=== PATIENT | female | born 1950 | race Caucasian/White ===

== ENCOUNTER 2017-04-15 11:03 | Observation (INO) | payer OTHER, MEDICARE ==
[~2017-04-15] VITALS: Ht 162.6 cm; Wt 76.4 kg
[~2017-04-15 11:03] MED LIST: ASPI81TA28 PO; CHOL100010 PO; CLX40 PO; EZET10TA38 PO; METO25TA56 PO; PANT40TA PO; PRLSR20 PO; SYN50 PO
[2017-04-15 12:01] LABS: HEMOGLOBIN 16.5 g/dL (12.0-16.0); MEAN CELL VOLUME 92.9 fL (80-100); MEAN CORPUSCULAR HEMOGLOBIN 30.7 pg (25-34); MEAN PLATELET VOLUME 10.7 fL (7.4-10.4); PLATELET COUNT 278 K/uL (130-400); RED CELL DISTRIBUTION WIDTH CV 14.1 % (11.5-14.5); RED CELL DISTRIBUTION WIDTH SD 47.7 fL (36.4-46.3); WHITE BLOOD COUNT 8.37 K/uL (4.8-10.8)
--- NOTE | 2017-04-15 12:06 | EMERGENCY ROOM VISIT NOTE ---
History First contact with patient: 11:25 Chief Complaint: CARDIAC ASSESSMENT Stated Complaint: CHEST HEAVINESS, WEAKNESS Nursing Triage Summary: Patient c/o bilateral leg weakness, chest heaviness, shortness of breath x 3 weeks. Have not seen her PCP. Patient states "Today it was worse." History of Present Illness 66F with a PMHx of hypothyroidism, angina (neg exercise stress test in the past ) who presents to the Emergency Room with complaints of chest pressure and SOB x 3 weeks. patient was bending forward to pick pulling machine tender her chickens 3 weeks ago when she experienced sudden onset dyspnea and chest pressure. Her symptoms never really went away afterwards. Patient has had an increase in dyspnea recently on activities. ROS: No chest pain, no nausea or vomiting, chronic heartburn, chronic RUQ pain after eatiing, no dysuria, no abdominal pain. one episode of diarrhea last night. No increase in coughing, no increase in the swelling of the hands or feet. She has chronic L ankle pain. SHX: 40pk year smoking history. Review of Systems See HPI for pertinent positives and negatives. A total of ten systems were reviewed and were otherwise negative. Past Medical/Surgical History Medical Problems: (1) Chest pain, rule out acute myocardial infarction (2) History of stress test Family History Patient reports no known family medical history. Social History Smoking Status: Current Every Day Smoker Drug Use: none Marital Status: Occupation Status: retired Current/Historical Medications Scheduled Aspirin (Aspirin Ec), 81 MG PO DAILY Cholecalciferol (Vitamin D), 1,000 INTER.UNIT PO BID Citalopram (Citalopram Hydrobromide), 40 MG PO QAM Ezetimibe/Simvastatin (Vytorin 10MG/20MG), 1 TAB PO QPM Levothyroxine Sodium (Synthroid), 50 MCG PO QAM Metoprolol Tartrate (Lopressor) (Lopressor), 25 MG PO BID Omeprazole (Prilosec), 20 MG PO BID Pantoprazole (Protonix), 40 MG PO BID Physical Exam Vital Signs Date Time Temp Pulse Resp B/P (MAP) Pulse Ox O2 Delivery O2 Flow Rate FiO2 04/15/17 11:50 98 Room Air 04/15/17 11:11 36.5 69 18 150/77 97 Room Air Physical Exam Gen: No acute distress. HEENT: Head - normocephalic and atraumatic. Pupils are equal, round, and reactive to light. Extraocular eye muscles are intact and sclera are anicteric. Ears - bilaterally patent canals with noninjected tympanic membranes and no evidence of hemotympanum. Nose - moist nasal mucosa without discharge. Mouth - moist buccal mucosa. Oropharynx is nonerythematous and there is no tonsillar exudate or edema noted. Neck: Supple; no JVD, nuchal rigidity, cervical lymphadenopathy, or auscultated bruits. Heart: Regular rate and rhythm. There is a normal S1 and S2 with no murmurs, clicks, or gallops appreciated. Lungs: Clear to auscultation bilaterally with no wheezes, rales, or rhonchi. Normal lungs sounds especially in the light of pt's extensive smoking history. Abdomen: Soft, tender to deep palpation in the RUQ, nondistended, with good bowel sounds. There are no palpable pulsatile masses or hepatosplenomegaly. There is no guarding, rigidity, or rebound noted. Extremities: No evidence of cyanosis, clubbing, or edema. There are easily palpable peripheral pulses. No calf tenderness bilaterally. Neuro:The patient is awake and alert, oriented to day, time, and place. Muscle strength is 5/5 in all 4 extremities. The patient has equal tax accountant strength and equal pedal push and pull. There are no cerebellar signs. Medical Decision & Procedures ER Provider Diagnostic Interpretation: SINGLE VIEW CHEST CLINICAL HISTORY: Cough. Chest pressure. FINDINGS: An AP, portable, upright chest radiograph is compared to study dated 09/05/2015. The examination is degraded by portable technique and patient rotation. The cardiomediastinal silhouette is unremarkable. There is atherosclerotic calcification of the thoracic aorta. Chronic interstitial thickening is unchanged. Bibasilar atelectasis is noted. No airspace consolidation is seen typical for pneumonia and there is no large pleural effusion. No pneumothorax is seen. The skeletal structures are osteopenic. The bony thorax is grossly intact. IMPRESSION: No acute cardiopulmonary abnormality. Laboratory Results 04/15/17 11:35 04/15/17 11:35 Test 04/15/17 11:35 04/15/17 11:42 04/15/17 11:49 Red Blood Count 5.38 M/uL (4.2-5.4) Mean Corpuscular Volume 92.9 fL (80-100) Mean Corpuscular Hemoglobin 30.7 pg (25-34) Mean Corpuscular Hemoglobin Concent 33.0 g/dl (32-36) RDW Standard Deviation 47.7 fL (36.4-46.3) RDW Coefficient of Variation 14.1 % (11.5-14.5) Mean Platelet Volume 10.7 fL (7.4-10.4) D-Dimer 480 ug/L FEU (0-500) Anion Gap 2.0 mmol/L (3-11) Est Creatinine Clear Calc Drug Dose 67.3 ml/min Estimated GFR () 87.8 Estimated GFR (Non- 75.8 BUN/Creatinine Ratio 10.3 (10-20) Calcium Level 10.3 mg/dl (8.5-10.1) Total Bilirubin 0.5 mg/dl (0.2-1) Aspartate Amino Transf (AST/SGOT) 19 U/L (15-37) Alanine Aminotransferase (ALT/SGPT) 28 U/L (12-78) Alkaline Phosphatase 96 U/L (45-117) Creatine Kinase MB 1.1 ng/ml (0.5-3.6) Pro-B-Type Natriuretic Peptide 123 pg/ml (0-900) Total Protein 7.4 gm/dl (6.4-8.2) Albumin 4.0 gm/dl (3.4-5.0) Globulin 3.4 gm/dl (2.5-4.0) Albumin/Globulin Ratio 1.2 (0.9-2) Lipase 171 U/L (73-393) Thyroid Stimulating Hormone (TSH) 3.490 uIu/ml (0.300-4.500) Bedside Troponin I < 0.030 ng/ml (0-0.045) Creatine Kinase MB Ratio (0-3.0) Medical Decision The patient's care and disposition was discussed with Dr. Corado, Attending ED Physician. This is a 66M with Chest Pressure x 3 weeks. Differential diagnosis include cardiac ischemia, aortic dissection, pulmonary embolism, pneumonia, pneumothorax , musculoskeletal, infections, gastrointestinal, as well as others were entertained. Triage Nursing notes were reviewed. ED Course included an extensive history and physical exam, labs and imaging. EKG - NSR (rate of 61), no ST changes, normal axis, no ectopy. CBC - WNL, aside from elevated Hematocrit CMP - normal Trops - neg XRAY - neg D-Dimer - normal Lipase - normal TSH - normal 11:30 - Patient was examined. 11:45 - Pt was discussed with Dr. Corado and orders were placed. 12:45 - Findings were reviewed with Dr. Corado and the family. Because of the patient's smoking history, age and other risk factors she can be considered high risk for a cardiac event. 12:54 - Hospitalist was paged. 12:55 - Talked to Dr. Lemons for an admission for chest pain rule out. The pt was informed about the findings as listed above. All questions were answered. Impression Primary Impression: Chest pain, rule out acute myocardial infarction Departure Information Dispostion Admitted as an inpatient Condition GOOD Referrals Benito Cheema M.D. (PCP) Patient Instructions [facility] Resident Involvement: Resident Care Provided Care Provided: Adult ED
[2017-04-15 12:12] LABS: ALT/SGPT 28 U/L (12-78); AST/SGOT 19 U/L (15-37); BLOOD UREA NITROGEN 8 mg/dl (7-18); CALCIUM 10.3 mg/dl (8.5-10.1); CARBON DIOXIDE 31 mmol/L (21-32); GLUCOSE 97 mg/dl (70-99); LIPASE 171 U/L (73-393); POTASSIUM 4.3 mmol/L (3.5-5.1); SODIUM 138 mmol/L (136-145)
--- NOTE | 2017-04-15 12:13 | DIAGNOSTIC IMAGING REPORT ---
SINGLE VIEW CHEST CLINICAL HISTORY: Cough. Chest pressure. FINDINGS: An AP, portable, upright chest radiograph is compared to study dated 09/05/2015. The examination is degraded by portable technique and patient rotation. The cardiomediastinal silhouette is unremarkable. There is atherosclerotic calcification of the thoracic aorta. Chronic interstitial thickening is unchanged. Bibasilar atelectasis is noted. No airspace consolidation is seen typical for pneumonia and there is no large pleural effusion. No pneumothorax is seen. The skeletal structures are osteopenic. The bony thorax is grossly intact. IMPRESSION: No acute cardiopulmonary abnormality. Electronically signed by: Vasile Ash M.D. 04/15/2017 12:11 PM Dictated Date/Time: 04/15/2017 12:11 PM
[2017-04-15 12:23] LABS: ALKALINE PHOSPHATASE 96 U/L (45-117); CKMB 1.1 ng/ml (0.5-3.6); TOTAL PROTEIN 7.4 gm/dl (6.4-8.2)
[2017-04-15] MEDS ORDERED: MONT1TAB5 PO (13:11)
--- NOTE | 2017-04-15 13:52 | DIAGNOSTIC IMAGING REPORT ---
ULTRASOUND RIGHT UPPER QUADRANT ABDOMEN CLINICAL HISTORY: Chronic right upper quadrant abdominal pain. COMPARISON STUDY: No priors. TECHNIQUE: Real-time, grayscale, and color flow sonography of the right upper quadrant of the abdomen was performed. Images are reviewed in the transverse and longitudinal planes. FINDINGS: Liver: The liver is normal in size and echotexture. There is no intrahepatic biliary ductal dilatation. The main portal vein is patent. Gallbladder: Focal adenomyomatosis is suggested in the gallbladder fundus. A tiny polyp is questioned. The gallbladder is otherwise normal in appearance. No gallstones are identified. There is no gallbladder wall thickening or pericholecystic fluid. A sonographic Wheeler's sign is reportedly absent. The common bile duct measures up to 0.4 cm in diameter. Pancreas: Visualized portions of the pancreatic head and body are normal in appearance. Right kidney: Survey images of the right kidney demonstrate normal size and echotexture. There is no hydronephrosis. Ascites: None. IMPRESSION: No acute sonographic abnormality is identified in the right upper quadrant. No gallstones are seen. Electronically signed by: Vasile Ash M.D. 04/15/2017 1:50 PM Dictated Date/Time: 04/15/2017 1:49 PM
[2017-04-15] MEDS ORDERED: POLYETHYLENE (MIRALAX) 17 GM PACK PO PRN (14:30)
[2017-04-15] MEDS ORDERED: ONDANSETRON INJ 2 MG/ML 2 ML VIAL IV PRN (14:30)
[2017-04-15] MEDS ORDERED: MAGNESIUM HYDROXIDE SUSP 30 ML UDC PO PRN (14:30)
[2017-04-15] MEDS ORDERED: ACETAMINOPHEN 325 MG TAB PO PRN (14:30)
[2017-04-15] MEDS ORDERED: ALUMINUM/MAGNESIUM/SIMETH (MAALOX MAX) 30 ML UDC PO PRN (14:30)
[2017-04-15] MEDS ORDERED: EZET1TAB33 PO (14:35)
--- NOTE | 2017-04-15 14:55 | History and Physical ---
History & Physical Date & Time of Service: Apr 15, 2017 at 14:38 Chief Complaint: Chest Heaviness, Weakness Primary Care Physician: Benito Cheema M.D. History of Present Illness Source: patient, family (at bedside), clinic records, hospital records This is a 66 y/o female with a history of HTN,HLD, angina, hypothyroidism, depression/anxiety, asthma and GERD who presented to the ED on 04/15 with chest pain and shortness of breath. The patient states that her symptoms first started about 3 weeks ago, but this morning her chest pain was acutely worse. She states that she developed an 8/10 central chest pressure along with shortness of breath. She states the pain radiated up to her throat. After sitting down and taking her normal morning medications, the pain began to slowly improve on its own. She currently denies any chest pain, and her shortness of breath has resolved too. She reports a chronic cough which is sometimes productive and states she sometimes has wheezing. The patient states she has intermittent nausea after she takes her Protonix, which is ongoing, but denies any vomiting. The patient denies fevers, chills, sweats, palpitations, claudication, vomiting, abdominal pain, dysuria, hematuria, urinary retention, paralysis, weakness, numbness and tingling. Past Medical/Surgical History Medical Problems: (1) History of stress test Status: Resolved HTN HLD Angina Hypothyroidism Depression/anxiety Asthma GERD Family History Diabetes mellitus Hypertension Kidney cancer SON Kidney disease SON Lung cancer MOTHER Myocardial infarction at age less than 60 FATHER, Onset:42 (3 MIs, of SC at 42) [place] SON Social History Smoking Status: Current Every Day Smoker (1/2 ppd currently, smoking 40 years) Smokeless Tobacco Use: No Alcohol Use: occasionally Drug Use: none Marital Status: Housing status: lives with significant other Occupational Status: retired Allergies Coded Allergies: Latex (Unverified Allergy, Intermediate, RASH, 04/15/17) Home Medications Scheduled Aspirin (Aspirin Ec), 81 MG PO DAILY Citalopram (Citalopram Hydrobromide), 40 MG PO QAM Ezetimibe-Simvastatin (Ezetimibe/Simvastatin 10-40 mg), 1 TAB PO DAILY Levothyroxine Sodium (Synthroid), 50 MCG PO QAM Metoprolol Tartrate (Lopressor) (Lopressor), 25 MG PO BID Montelukast Sodium (Montelukast Sodium), 10 MG PO HS Pantoprazole (Protonix), 40 MG PO BID Review of Systems Constitutional: No fever, No chills, No sweats Eyes: No worsening of vision, No eye pain, No diplopia ENT: No hearing loss, No nasal symptoms, No trouble swallowing Respiratory: +Chronic cough. Intermittent wheezing. SOB resolved. LIU. Cardiovascular: +Chest pressure resolved. No claudication, No palpitations Abdomen: +Intermittent nausea with Protonix. No pain, No vomiting Musculoskeletal: No joint pain, No muscle pain, No swelling Genitourinary - Female: No dysuria, No urinary retention, No hematuria Neurologic: No paralysis, No weakness, No numbness/tingling Integumentary: No rash, No itch, No color change Physical Exam Vital Signs Date Time Temp Pulse Resp B/P (MAP) Pulse Ox O2 Delivery O2 Flow Rate FiO2 04/15/17 14:09 64 16 169/72 98 Room Air 04/15/17 13:01 55 20 145/76 96 Room Air 04/15/17 12:31 56 16 145/69 98 Room Air 04/15/17 12:01 55 16 147/72 96 Room Air 04/15/17 11:50 98 Room Air 04/15/17 11:49 56 16 166/79 97 Room Air 04/15/17 11:11 36.5 69 18 150/77 97 Room Air General appearance: Well-developed, well-nourished, no apparent distress Head: Normocephalic, atraumatic Eyes: Normal inspection, PERRL, EOMI ENT: Normal ENT inspection, hearing grossly normal, pharynx normal Neck: Supple, no JVD, trachea midline Respiratory/Chest: Lungs clear to auscultation, normal breath sounds, no respiratory distress Cardiovascular: Regular rate & rhythm, no gallop, no murmur Abdomen/GI: +RUQ TTP. Normal bowel sounds, soft Extremities/Musculoskeletal: Normal inspection, no calf tenderness, no pedal edema Neurological/Psych: Alert, normal mood/affect, oriented x 3 Skin: Normal color, warm/dry, no rash Diagnostics Laboratory Results Results Past 24 Hours Test 04/15/17 11:35 04/15/17 11:42 04/15/17 11:49 Range/Units White Blood Count 8.37 4.8-10.8 K/uL Red Blood Count 5.38 4.2-5.4 M/uL Hemoglobin 16.5 12.0-16.0 g/dL Hematocrit 50.0 37-47 % Mean Corpuscular Volume 92.9 80-100 fL Mean Corpuscular Hemoglobin 30.7 25-34 pg Mean Corpuscular Hemoglobin Concent 33.0 32-36 g/dl RDW Standard Deviation 47.7 36.4-46.3 fL RDW Coefficient of Variation 14.1 11.5-14.5 % Platelet Count 278 130-400 K/uL Mean Platelet Volume 10.7 7.4-10.4 fL D-Dimer 480 0-500 ug/L FEU Sodium Level 138 136-145 mmol/L Potassium Level 4.3 3.5-5.1 mmol/L Chloride Level 105 98-107 mmol/L Carbon Dioxide Level 31 21-32 mmol/L Anion Gap 2.0 3-11 mmol/L Blood Urea Nitrogen 8 7-18 mg/dl Creatinine 0.80 0.60-1.20 mg/dl Est Creatinine Clear Calc Drug Dose 67.3 ml/min Estimated GFR () 87.8 Estimated GFR (Non- 75.8 BUN/Creatinine Ratio 10.3 10-20 Random Glucose 97 70-99 mg/dl Calcium Level 10.3 8.5-10.1 mg/dl Total Bilirubin 0.5 0.2-1 mg/dl Aspartate Amino Transf (AST/SGOT) 19 15-37 U/L Alanine Aminotransferase (ALT/SGPT) 28 12-78 U/L Alkaline Phosphatase 96 45-117 U/L Creatine Kinase MB 1.1 0.5-3.6 ng/ml Pro-B-Type Natriuretic Peptide 123 0-900 pg/ml Total Protein 7.4 6.4-8.2 gm/dl Albumin 4.0 3.4-5.0 gm/dl Globulin 3.4 2.5-4.0 gm/dl Albumin/Globulin Ratio 1.2 0.9-2 Lipase 171 73-393 U/L Thyroid Stimulating Hormone (TSH) 3.490 0.300-4.500 uIu/ml Bedside Troponin I < 0.030 0-0.045 ng/ml Creatine Kinase MB Ratio 0-3.0 Diagnostic Radiology Reviewed the following studies and agree with interpretation as follows: SINGLE VIEW CHEST CLINICAL HISTORY: Cough. Chest pressure. FINDINGS: An AP, portable, upright chest radiograph is compared to study dated 09/05/2015. The examination is degraded by portable technique and patient rotation. The cardiomediastinal silhouette is unremarkable. There is atherosclerotic calcification of the thoracic aorta. Chronic interstitial thickening is unchanged. Bibasilar atelectasis is noted. No airspace consolidation is seen typical for pneumonia and there is no large pleural effusion. No pneumothorax is seen. The skeletal structures are osteopenic. The bony thorax is grossly intact. IMPRESSION: No acute cardiopulmonary abnormality. ULTRASOUND RIGHT UPPER QUADRANT ABDOMEN CLINICAL HISTORY: Chronic right upper quadrant abdominal pain. COMPARISON STUDY: No priors. TECHNIQUE: Real-time, grayscale, and color flow sonography of the right upper quadrant of the abdomen was performed. Images are reviewed in the transverse and longitudinal planes. FINDINGS: Liver: The liver is normal in size and echotexture. There is no intrahepatic biliary ductal dilatation. The main portal vein is patent. Gallbladder: Focal adenomyomatosis is suggested in the gallbladder fundus. A tiny polyp is questioned. The gallbladder is otherwise normal in appearance. No gallstones are identified. There is no gallbladder wall thickening or pericholecystic fluid. A sonographic Wheeler's sign is reportedly absent. The common bile duct measures up to 0.4 cm in diameter. Pancreas: Visualized portions of the pancreatic head and body are normal in appearance. Right kidney: Survey images of the right kidney demonstrate normal size and echotexture. There is no hydronephrosis. Ascites: None. IMPRESSION: No acute sonographic abnormality is identified in the right upper quadrant. No gallstones are seen. EKG Reviewed EKG and agree with interpretation as follows: 61 bpm, NSR Impression Assessment and Plan 66 y/o female with a history of HTN, HLD, angina, hypothyroidism, depression/ anxiety, asthma and GERD who presented to the ED on 04/15 with chest pain and shortness of breath. Pt arrived to ED afebrile, VSS. Chest pain now resolved. CXR no acute disease. RUQ abdominal ultrasound no acute disease. EKG no ischemic changes. Troponin negative. Chest pain, ACS r/o--pt w/pain for 3 weeks but acutely worse this morning. High risk given HTN, HLD, current smoker and family history -Admit to telemetry for observation -Trend cardiac enzymes q8h x 3. First set negative -Stress echo in am if negative. Pt unable to do exercise stress test due to bad knee and ankle. Dobutamine stress ordered -EKG q am and prn chest pain -Fasting lipid profile in am -Continue ASA, beta yvan, statin RUQ pain--only occurs with palpation, no pain at rest -RUQ ultrasound no acute disease HTN, HLD--stable -Continue Lopressor 25 mg PO BID, Vytorin 10/40 mg PO hs Hypothyroidism--stable -TSH WNL -Continue Synthroid 50 mcg PO qd Depression/anxiety--stable -Continue Celexa 40 mg PO qd Asthma -Continue Singulair 10 mg PO qd GERD -Continue Protonix 40 mg PO BID DVT prophylaxis -Enoxaparin 40 mg SC q24h -FÁTIMA Miller Code Status -Level I, FULL RESUSCITATION STATUS Supervising Note Dr. Eason I performed a history and physical examination on the patient. I reviewed above note and agree with it. I discussed plan with APC and patient. During my face to face encounter with the patient, I answered all of the patient's questions. Level of Care Telemetry Resuscitation Status FULL RESUSCITATION VTE Prophylaxis VTE Risk Assessment Done? Y/N: Yes Risk Level: Moderate Given or contraindicated: Enoxaparin (Lovenox)SQ, T.E.D. Stockings, SCD's
[2017-04-15] MEDS ORDERED: IV FLUIDS COMPLETED PRN (15:00)
[2017-04-15 15:31] VITALS: BP 181/76; PULSE 61; TEMP 36.4; O2SAT 96
[2017-04-15 15:34] VITALS: BP 181/76; PULSE 61; TEMP 36.4; O2SAT 96; Ht 162.6 cm; Wt 76.4 kg
[2017-04-15 16:25] LABS: INR 0.9 (0.9-1.1); PTT PATIENT 24.9 SECONDS (21.0-31.0)
[2017-04-15] MEDS: ENOXAPARIN 40 MG/0.4 ML SYR SC SCH (17:47)
[2017-04-15 19:25] VITALS: BP 132/69; PULSE 71; TEMP 36.8; O2SAT 94
[2017-04-15] MEDS: PANTOprazole SOD 40 MG TAB PO SCH (19:41)
[2017-04-15] MEDS: MONTELUKAST SOD 10 MG TAB PO SCH (19:41)
[2017-04-15] MEDS: METOPROLOL TARTRATE 25 MG TAB PO SCH (19:41)
[2017-04-15 20:08] LABS: CKMB 0.9 ng/ml (0.5-3.6)
[2017-04-15 23:10] VITALS: BP 132/76; PULSE 67; TEMP 37; O2SAT 93
[2017-04-16 03:28] VITALS: BP 147/87; PULSE 67; TEMP 36.8; O2SAT 95
[2017-04-16 04:21] LABS: CHOLESTEROL 142 mg/dl (0-200); CKMB 1.2 ng/ml (0.5-3.6); LDL CHOLESTEROL CALCULATED 72 mg/dl
[2017-04-16] MEDS: LEVOTHYROXINE 50 MCG TAB PO SCH (05:57)
[2017-04-16 07:51] VITALS: BP 142/53; PULSE 67; TEMP 36.2; O2SAT 94
[2017-04-16] MEDS: METOPROLOL TARTRATE 25 MG TAB PO SCH ×2 (09:51→21:05)
[2017-04-16] MEDS: CITALOPRAM 40 MG TAB PO SCH (09:52)
[2017-04-16] MEDS: EZETIMIBE/SIMVASTATIN 10/40 TAB PO SCH (09:52)
[2017-04-16] MEDS: PANTOprazole SOD 40 MG TAB PO SCH ×2 (09:52→21:05)
[2017-04-16] MEDS: ASPIRIN 81 MG ECTAB PO SCH (09:52)
[2017-04-16 12:09] VITALS: BP 117/77; PULSE 62; TEMP 36.7; O2SAT 94
[2017-04-16 15:10] VITALS: BP 142/85; PULSE 63; TEMP 36.7; O2SAT 95
[2017-04-16] MEDS: ENOXAPARIN 40 MG/0.4 ML SYR SC SCH (17:52)
--- NOTE | 2017-04-16 18:10 | Progress Note ---
Subjective Date of Service: Apr 16, 2017. Subjective Pt evaluation today including: conversation w/ patient, conversation w/ family ( at bedside), physical exam, chart review, lab review, review of studies (EKG, RUQ u/s, cxr), review of inpatient medication list Pain: none since admission PO Intake: normal, no abd pain Voiding: no voiding problems tele normal since admission patient reports having had what she remembers was a normal heart cath about 10 years ago in [place] previously saw Dr. Cheema from cardiology in [place] last stress test was 3+ years ago - was negative to her recollection when asked if she has been dx with "angina" she states yes but has never been prescribed anything for such she continues to smoke cigarettes daily, 1/2 ppd declines nicoderm patch father had MIs in his 40s Problem List Medical Problems: (1) Hypertension Status: Acute (2) Substernal chest pain Status: Acute Review of Systems Respiratory: + dyspnea on exertion (chronic, recurrent episodes of such associated with chest heaviness), No cough, No sputum, No wheezing Cardiac: No chest pain (none since admission), No orthopnea, No PND, No edema, No claudication, No palpitations Abdomen: No pain, No nausea, No vomiting Objective Vital Signs Date Time Temp Pulse Resp B/P (MAP) Pulse Ox O2 Delivery O2 Flow Rate FiO2 04/16/17 15:10 36.7 63 20 142/85 (104) 95 Room Air 04/16/17 12:09 36.7 62 16 117/77 (90) 94 Room Air 04/16/17 07:51 36.2 67 16 142/53 (82) 94 Room Air Nasal Cannula 04/16/17 04:00 Room Air 04/16/17 03:28 36.8 67 18 147/87 (107) 95 Room Air 04/16/17 00:00 Room Air 04/15/17 23:10 37.0 67 17 132/76 (94) 93 Room Air 04/15/17 20:00 Room Air 04/15/17 19:25 36.8 71 17 132/69 (90) 94 Room Air Physical Exam General Appearance: no apparent distress Eyes: + pertinent finding (lipid deposits near both eyes ) ENT: pharynx normal Neck: no JVD Respiratory/Chest: chest non-tender, lungs clear, no respiratory distress, no accessory muscle use Cardiovascular: regular rate, rhythm, no gallop, no murmur Abdomen: normal bowel sounds, non tender, soft, no organomegaly Extremities: no pedal edema, + pertinent finding (pulses both feet 2+ ) Neurologic/Psychiatric: alert, oriented x 3 Laboratory Results Last 24 Hours Test 04/15/17 19:36 04/16/17 03:48 Total Creatine Kinase 46 U/L 45 U/L Creatine Kinase MB 0.9 ng/ml 1.2 ng/ml Creatine Kinase MB Ratio 2.0 2.7 Troponin I < 0.015 ng/ml < 0.015 ng/ml Triglycerides Level 152 mg/dl Cholesterol Level 142 mg/dl HDL Cholesterol 40 mg/dl LDL Cholesterol, Calculated 72 mg/dl VLDL Cholesterol, Calculated 30 mg/dl Cholesterol/HDL Ratio 3.6 Assessment and Plan 66yo female - 1. chest pain, recurrent x 1 month - thus far has ruled out for MA with 3 neg troponins. EKGs without ischemic changes. [id number] I am concerned about her symptomatology and multiple CAD risk factors. Dobutamine stress echo ordered for the AM. CV risk factors include HTN, hyperlipidemia, tobacco use, family history, post- menopausal female. Lipids are acceptable. Cont asa, BB, statin. 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 NPO after MN tonight for stress in AM. 2. hyperlipidemia - LDL acceptable, cont same statin dose. 3. RUQ pain - none today; RUQ u/s negative. 4. HTN - controlled. 5. tobacco dependence - long-standing - high school counselor to quit. Should receive AAA screening. 6. hypothyroidism - TSH compensated; cont synthroid 50mcg daily. 7. Depression/anxiety--stable -Continue Celexa 40 mg PO qd 8. COPD / asthma - stable; singulair. 9. GERD - cont PPI twice a day. I don't think her presenting symptoms are GI in origin. 10. DVT prophylaxis -Enoxaparin 40 mg SC q24h updated Continued [facility] stay due to: other (need for stress echo) Discharge planning: home
[2017-04-16 19:20] VITALS: BP 154/82; PULSE 68; TEMP 36.8; O2SAT 95
[2017-04-16] MEDS: MONTELUKAST SOD 10 MG TAB PO SCH (21:05)
[2017-04-16 23:18] VITALS: BP 157/93; PULSE 72; TEMP 36.7; O2SAT 95
[2017-04-17 03:14] VITALS: BP 148/84; PULSE 61; TEMP 36.7; O2SAT 95
[2017-04-17] MEDS: LEVOTHYROXINE 50 MCG TAB PO SCH (06:22)
[2017-04-17] MEDS ORDERED: DOBUTamine HCL 12.5 MG/ML 20 ML VIAL ONE (08:08)
[2017-04-17] MEDS ORDERED: METOPROLOL TARTRATE 1 MG/ML VIAL ONE (08:08)
[2017-04-17] MEDS ORDERED: ATROPINE SULFATE 0.1 MG/ML 5ML SYR ONE (08:09)
[2017-04-17 08:33] VITALS: BP 127/61; PULSE 63; TEMP 36.8; O2SAT 93
[2017-04-17] MEDS: CITALOPRAM 40 MG TAB PO SCH (10:02)
[2017-04-17] MEDS: METOPROLOL TARTRATE 25 MG TAB PO SCH (10:02)
[2017-04-17] MEDS: ASPIRIN 81 MG ECTAB PO SCH (10:02)
[2017-04-17] MEDS: EZETIMIBE/SIMVASTATIN 10/40 TAB PO SCH (10:02)
[2017-04-17] MEDS: PANTOprazole SOD 40 MG TAB PO SCH (10:02)
[2017-04-17 12:00] VITALS: O2SAT 93
[2017-04-17 12:42] VITALS: BP 129/75; PULSE 62; TEMP 36.8; O2SAT 94
--- NOTE | 2017-04-17 13:31 | Discharge Instructions ---
Discharge Instructions Date of Service Apr 17, 2017. Admission Reason for Admission: Chest Pain,R/O Acute Myocardial Infarction Discharge Discharge Diagnosis / Problem: Chest pain Discharge Goals Goal(s): Decrease discomfort, Diagnostic testing, Therapeutic intervention Activity Recommendations Activity Limitations: resume your previous activity (as tolerated) . Instructions / Follow-Up Instructions / Follow-Up You were admitted to the hospital after presenting with chest pain and shortness of breath. Your cardiac workup to rule out an acute cardiac event included EKGs, serial cardiac enzymes, and a stress test. These have all come back normal. Although your stress test was interpreted as normal, it is possible that there is still underlying coronary artery disease. It is recommended that you follow up with your mri assistant for further evaluation of your chest pain and shortness of breath as an outpatient. As acute cardiac events have been ruled out and you are feeling well, you are now medically stable for discharge. Medications: *No changes have been made to your medications. Please continue as prescribed. Follow up: *You have been scheduled to follow up with Rigoberto Gacria PA-C, at your primary care provider's office on Monday, 04/21 at 2:00 pm. *You have also been scheduled to follow up with your mri assistant, Dr. Cheema , on 04/26 at 1:50 pm. *It is recommended that you have a screening ultrasound done to assess for an abdominal aortic aneurysm due to your smoking history and increased risk. Please bring this up at your primary care provider follow up appointment. *It is also recommended that you have pulmonary function tests (PFTs) performed with Dr. Diego of pulmonology to assess for underlying pulmonary disease, again given your smoking history. Your symptoms may be due to pulmonary disease and/ or cardiac disease. Please seek medical attention if you experience fevers, chills, sweats, dizziness/lightheadedness, loss of consciousness, chest pain, shortness of breath, nausea, vomiting, numbness or tingling. Current Hospital Diet Patient's current hospital diet: AHA Diet (Heart Healthy) Discharge Diet Recommended Diet: AHA Diet (Heart Healthy) Procedures Procedures Performed: Dobutamine stress echocardiogram Pending Studies Studies pending at discharge: no Laboratory Results Lipid Panel Test 04/16/17 03:48 Range/Units Triglycerides Level 152 H 0-150 mg/dl Cholesterol Level 142 0-200 mg/dl HDL Cholesterol 40 mg/dl Cholesterol/HDL Ratio 3.6 LDL Cholesterol, Calculated 72 mg/dl Medical Emergencies . Who to Call and When: Medical Emergencies: If at any time you feel your situation is an emergency, please call 911 immediately. . Non-Emergent Contact Non-Emergency issues call your: Primary Care Provider, Animal Science Instructor, Receivables Specialist Call Non-Emergent contact if: you have a fever, your pain is not controlled, your pain is worsening, your pain is unusual for you, your pain is concerning you, you have any medication questions . Past History Medical & Surgical History: (1) Chest pain, rule out acute myocardial infarction . "Provider Documentation" section prepared by Charo Becerra. . VTE Core Measure Inpt VTE Proph given/why not?: Enoxaparin (Lovenox)OSVALDO, T.E.Kay. Molly, SCD's
[2017-04-17 13:42] VITALS: BP 129/75; PULSE 62; TEMP 36.8; O2SAT 94
--- NOTE | 2017-04-17 14:02 | Discharge Summary ---
Discharge Summary Date of Service Apr 17, 2017. Discharge Summary Admission Date: Apr 15, 2017 at 15:37 Discharge Date: Apr 17, 2017 Discharge Disposition: Home Principal Diagnosis: Chest pain Problems/Secondary Diagnoses: HTN, HLD, angina, hypothyroidism, depression/anxiety, asthma, GERD Procedures: SINGLE VIEW CHEST CLINICAL HISTORY: Cough. Chest pressure. FINDINGS: An AP, portable, upright chest radiograph is compared to study dated 09/05/2015. The examination is degraded by portable technique and patient rotation. The cardiomediastinal silhouette is unremarkable. There is atherosclerotic calcification of the thoracic aorta. Chronic interstitial thickening is unchanged. Bibasilar atelectasis is noted. No airspace consolidation is seen typical for pneumonia and there is no large pleural effusion. No pneumothorax is seen. The skeletal structures are osteopenic. The bony thorax is grossly intact. IMPRESSION: No acute cardiopulmonary abnormality. ULTRASOUND RIGHT UPPER QUADRANT ABDOMEN CLINICAL HISTORY: Chronic right upper quadrant abdominal pain. COMPARISON STUDY: No priors. TECHNIQUE: Real-time, grayscale, and color flow sonography of the right upper quadrant of the abdomen was performed. Images are reviewed in the transverse and longitudinal planes. FINDINGS: Liver: The liver is normal in size and echotexture. There is no intrahepatic biliary ductal dilatation. The main portal vein is patent. Gallbladder: Focal adenomyomatosis is suggested in the gallbladder fundus. A tiny polyp is questioned. The gallbladder is otherwise normal in appearance. No gallstones are identified. There is no gallbladder wall thickening or pericholecystic fluid. A sonographic Wheeler's sign is reportedly absent. The common bile duct measures up to 0.4 cm in diameter. Pancreas: Visualized portions of the pancreatic head and body are normal in appearance. Right kidney: Survey images of the right kidney demonstrate normal size and echotexture. There is no hydronephrosis. Ascites: None. IMPRESSION: No acute sonographic abnormality is identified in the right upper quadrant. No gallstones are seen. Medication Reconciliation Continued Medications: Aspirin (Aspirin Ec) 81 Mg Tab 81 MG PO DAILY Citalopram (Citalopram Hydrobromide) 40 Mg Tab 40 MG PO QAM Ezetimibe-Simvastatin (Ezetimibe/Simvastatin 10-40 mg) 1 Tab Tab 1 TAB PO DAILY Levothyroxine Sodium (Synthroid) 50 Mcg Tab 50 MCG PO QAM Metoprolol Tartrate (Lopressor) (Lopressor) 25 Mg Tab 25 MG PO BID, TAB Montelukast Sodium (Montelukast Sodium) 10 Mg Tab 10 MG PO HS for 90 Days, TAB 3 Refills Pantoprazole (Protonix) 40 Mg Tab 40 MG PO BID, #30 TAB Referrals At Discharge Follow up Referrals: [employer] Safety Engineer Referral - Within 1-2 Weeks with Trey Diego Discharge Exam The patient reports feeling well. She denies any chest pain since admission. She denies any shortness of breath or other complaints. She states she feels very relieved about her stress test. The patient denies fevers, chills, sweats , chest pain, palpitations, claudication, cough, wheezing, shortness of breath, nausea, vomiting, abdominal pain, dysuria, hematuria, urinary retention, paralysis, weakness, numbness and tingling. Constitutional: No fever, No chills, No sweats Eyes: No worsening of vision, No eye pain, No diplopia ENT: No hearing loss, No nasal symptoms, No trouble swallowing Respiratory: No cough, No wheezing, No shortness of breath Cardiovascular: No chest pain, No claudication, No palpitations Abdomen: No pain, No nausea, No vomiting Musculoskeletal: No joint pain, No muscle pain, No swelling Genitourinary - Female: No dysuria, No urinary retention, No hematuria Neurologic: No paralysis, No weakness, No numbness/tingling Integumentary: No rash, No itch, No color change General appearance: Well-developed, well-nourished, no apparent distress Head: Normocephalic, atraumatic Eyes: Normal inspection, PERRL, EOMI ENT: Normal ENT inspection, hearing grossly normal, pharynx normal Neck: Supple, no JVD, trachea midline Respiratory/Chest: Lungs clear to auscultation, normal breath sounds, no respiratory distress Cardiovascular: Regular rate & rhythm, no gallop, no murmur Abdomen/GI: Normal bowel sounds, non-tender, soft Extremities/Musculoskeletal: Normal inspection, no calf tenderness, no pedal edema Neurological/Psych: Alert, normal mood/affect, oriented x 3 Skin: Normal color, warm/dry, no rash Hospital Course 66 y/o female with a history of HTN, HLD, angina, hypothyroidism, depression/ anxiety, asthma and GERD who presented to the ED on 04/15 with chest pain and shortness of breath. Pt arrived to ED afebrile, VSS. Chest pain now resolved. CXR no acute disease. RUQ abdominal ultrasound no acute disease. EKG no ischemic changes. Troponin negative. Pt w/pain for 3 weeks but acutely worse this morning. High risk given HTN, HLD, current smoker and family history Chest pain, ACS r/o--chest pain resolved -Admit to telemetry for observation. No acute events overnight. PT in sinus rhythm HR 60s-80s -Cardiac enzymes negative x 3 -Spoke to cardiology, dobutamine stress negative for ischemia, did reach target HR. No wall motion abnormalities -EKG no ischemic changes -Triglycerides elevated at 152, total cholesterol 142, non-HDL 102 -Continue ASA, beta yvan, statin -F/u with cardiology for further testing. Possible false negative stress test, if symptoms persist could consider diagnostic cardiac cath RUQ pain--resolved -RUQ ultrasound no acute disease HTN, HLD--stable -Continue Lopressor 25 mg PO BID, Vytorin 10/40 mg PO hs AAA screening--given risk factors, recommend screening ultrasound to assess for presence of AAA Hypothyroidism--stable -TSH WNL -Continue Synthroid 50 mcg PO qd Depression/anxiety--stable -Continue Celexa 40 mg PO qd Asthma -Continue Singulair 10 mg PO qd -Recommend outpt PFTs to assess for any other underlying pulmonary disease contributing to symptoms GERD -Continue Protonix 40 mg PO BID DVT prophylaxis -Enoxaparin 40 mg SC q24h -FÁTIMA Miller Code Status -Level I, FULL RESUSCITATION STATUS Total Time Spent: Greater than 30 minutes This includes examination of the patient, discharge planning, medication reconciliation, and communication with other providers. Discharge Instructions Please refer to the electronic Patient Visit Report (Discharge Instructions) for additional information. Additional Copies To Benito Cheema M.D.; Helen Carlson
--- NOTE | 2017-04-17 14:22 | DOBUTAMINE ECHO ---
*NOTICE TO RECEIVING CONSTITUTION PARTY AGENCY This information is strictly Confidential and protected under [place] law. [place] law prohibits you from making any further disclosure of this information unless further disclosure is expressly permitted by the written consent of the person to whom it pertains or is authorized by law. A general authorization for the release of medical or other information is not sufficient for this purpose. Hospital accepts no responsibility if the information is made available to any other person, INCLUDING THE PATIENT. Interpretation Summary * Name: MARIA VICTORIA MCGEE Study Date: 04/17/2017 07:30 AM BP: 127/65 mmHg * Patient Location: .2E\S\E202\S\1 HR: 55 * : 1950 (M/d/yyyy) Gender: Female Height: 64 in * Age: 66 yrs Ethnicity: [place] Weight: 167 lb * Ordering Physician: Charo Becerra * Referring Physician: Self, Referred * Performed By: Katia Zavaleta RDCS * * Reason For Study: CHEST PAIN * BSA: 1.8 m2 * -- Conclusions -- * Dobutamine Stress Echo: * 1. Negative Dobutamine stress echo for ischemia at 86 % MPHR. * 2. Negative Dobutamine ECG for ischemia at 86 % MPHR. * 3. Appropriate blood pressure response. * 4. No arrhythmia. * 5. No chest pain reported. * 6. Technically difficult study, enhanced with IV Definity. * Aortic valve sclerosis mild, without significant aortic valvular stenosis. * Echo: * 1. Normal left ventricular size and systolic function. EF 60-65%. No regional wall motion abnormalities. No left ventricular hypertrophy. Type 1 diastolic dysfunction. * 2. Sclerotic aortic valve without significant stenosis. Mild aortic regurgitation. * 3. Normal estimated right ventricular systolic pressure. Procedure Details * DOBUTAMINE ECHO, CPT#68150 * A contrast injection of Definity was performed to improve assessment of LV function. * Contrast was injected into an intravenous site in the left arm. * One vial of Definity ultrasound contrast was diluted in normal saline to a total volume of 10 ml. A total of '8' ml of solution was administered during imaging. * Lot # [id number] of Definity utilized for procedure. * Expiration date 1 UNA 19. * The attending nurse who injected the contrast agent was TAHMINA EDMONDS RN. Left Ventricle * The left ventricle is normal in size. * There is normal left ventricular wall thickness. * Left ventricular systolic function is normal. * Resting wall motion: Normal. Stress wall motion: Appropriate increase in Left ventricular systolic function and decrease in cavity size. No stress induced segmental wall motion abnormalities. * The left ventricular ejection fraction increases normally with stress. The left ventricular end-systolic cavity size reduces post-stress (normal response). The left ventricular wall motion with stress is normal. * No regional wall motion abnormalities noted. Right Ventricle * The right ventricle is normal in size and function. * The right ventricular systolic function is normal as assessed by tricuspid annular plane systolic excursion (TAPSE) (normal >1.5 cm). Atria * The left atrial size is normal. * Right atrial size is normal. * There is no evidence of atrial septal defect, but resolution does not allow assessment for a patent foramen ovale. Mitral Valve * The mitral valve is grossly normal. * There is no mitral valve stenosis. * There is trace mitral regurgitation. Tricuspid Valve * The tricuspid valve is not well visualized, but is grossly normal. * There is no tricuspid stenosis. * There is mild tricuspid regurgitation. Aortic Valve * Aortic valve sclerosis mild, without significant aortic valvular stenosis. * The aortic valve is trileaflet. * No hemodynamically significant valvular aortic stenosis. * Mild aortic regurgitation. Pulmonic Valve * The pulmonary valve is inadequately visualized, but the Doppler data is adequate for interpretation. * There is no significant pulmonary regurgitation. Great Vessels * The aortic root is normal size. Pericardium * There is no pericardial effusion. Stress Parameters * NSR at 62 bpm. * Stress ECG: No ST changes. No arrhythmias. * No arrhythmia were noted with stress. * Rest heart rate was '55' BPM. * Rest blood pressure was '127/65' * Maximum heart rate achieved was 131 bpm. * Maximum heart rate was 86 % of maximum age-predicted heart rate. * Maximum blood pressure was '161/47' * Maximum Dobutamine infusion rate was '20' mcg/kg/min. * A total of .5 mg of intravenous Atropine was used to supplement Dobutamine for heart rate response. * Dobutamine infusion was terminated due to achieving target heart rate MMode 2D Measurements and Calculations IVSd 1.1 cm LVIDd 5.2 cm LVIDs 3.3 cm LVPWd 0.75 cm IVS/LVPW 1.4 FS 36.4 % EDV(Teich) 129.3 ml ESV(Teich) 44.4 ml EF(Teich) 65.7 % EDV(cubed) 140.4 ml ESV(cubed) 36.2 ml EF(cubed) 74.2 % LV mass(C)d 171.1 grams LV mass(C)dI 94.5 grams/m\S\2 SV(Teich) 85.0 ml SI(Teich) 46.9 ml/m\S\2 SV(cubed) 104.2 ml SI(cubed) 57.5 ml/m\S\2 Ao root diam 3.1 cm Ao root area 7.7 cm\S\2 LVAd ap4 26.7 cm\S\2 LVLd ap4 7.9 cm EDV(MOD-sp4) 74.3 ml EDV(sp4-el) 76.1 ml LVAs ap4 14.8 cm\S\2 LVLs ap4 6.5 cm ESV(MOD-sp4) 30.1 ml ESV(sp4-el) 28.4 ml EF(MOD-sp4) 59.5 % EF(sp4-el) 62.8 % LVAd ap2 24.2 cm\S\2 LVLd ap2 6.9 cm EDV(MOD-sp2) 70.6 ml EDV(sp2-el) 72.0 ml LVAs ap2 13.2 cm\S\2 LVLs ap2 5.3 cm ESV(MOD-sp2) 28.4 ml ESV(sp2-el) 27.6 ml EF(MOD-sp2) 59.8 % EF(sp2-el) 61.7 % LVLd %diff -14.81 % EDV(MOD-bp) 77.3 ml LVLs %diff -22.24 % ESV(MOD-bp) 31.3 ml EF(MOD-bp) 59.5 % SV(MOD-sp4) 44.2 ml SI(MOD-sp4) 24.4 ml/m\S\2 SV(MOD-sp2) 42.2 ml SI(MOD-sp2) 23.3 ml/m\S\2 SV(MOD-bp) 46.0 ml SI(MOD-bp) 25.4 ml/m\S\2 SV(sp4-el) 47.8 ml SI(sp4-el) 26.4 ml/m\S\2 SV(sp2-el) 44.4 ml SI(sp2-el) 24.5 ml/m\S\2 Doppler Measurements and Calculations MV E max sánchez 77.1 cm/sec MV A max sánchez 84.9 cm/sec MV E/A 0.91 MV dec time 0.19 sec Ao V2 max 192.4 cm/sec Ao max PG 14.8 mmHg Ao max PG (full) 5.5 mmHg Ao V2 mean 124.1 cm/sec Ao mean PG 7.1 mmHg Ao V2 VTI 43.3 cm AI max sánchez 362.4 cm/sec AI max PG 52.5 mmHg AI dec slope 147.2 cm/sec\S\2 AI P1/2t 721.2 msec LV V1 max PG 9.3 mmHg LV V1 max 152.4 cm/sec SV(Ao) 331.9 ml SI(Ao) 183.2 ml/m\S\2 TR max sánchez 227.0 cm/sec RVSP(TR) 23.6 mmHg RAP systole 3.0 mmHg
== END 2017-04-17 13:58 | disposition home or self-care (01) ==
LOC: C.EDB 11:06 → C.2E 14:37 → ENRESERV 14:56 → C.2E 15:37 → UNDOADMOB 15:37 → UNDODISOB 04-17 13:58
PROVIDERS: ADMIT Internal Medicine Sports Medicine; ATTEND Internal Medicine
DX: R07.9 Chest pain, unspecified (principal); I10 Essential (primary) hypertension; E78.5 Hyperlipidemia, unspecified; I20.9 Angina pectoris, unspecified; E03.9 Hypothyroidism, unspecified; F32.9 Major depressive disorder, single episode, unspecified; F41.9 Anxiety disorder, unspecified; J45.909 Unspecified asthma, uncomplicated; K21.9 Gastro-esophageal reflux disease without esophagitis; Z79.82 Long term (current) use of aspirin; Z79.899 Other long term (current) drug therapy; F17.200 Nicotine dependence, unspecified, uncomplicated; Z83.3 Family history of diabetes mellitus; Z82.49 Family history of ischemic heart disease and other diseases of the circulatory system; Z80.51 Family history of malignant neoplasm of kidney; Z80.1 Family history of malignant neoplasm of trachea, bronchus and lung